=== PATIENT | male | born 1980 | race Asian ===

== ENCOUNTER 2018-06-07 18:00 | Emergency (ER) | payer OTHER ==
[~2018-06-07] VITALS: Ht 167.6 cm; Wt 67.1 kg
[2018-06-07 18:24] VITALS: Ht 167.6 cm; Wt 67.1 kg
[2018-06-07 20:02] VITALS: BP 140/96
== END 2018-06-07 20:02 | disposition home or self-care (01) ==
LOC: ED 18:00
DX: M79.10 Myalgia, unspecified site (principal); R07.89 Other chest pain; Z88.1 Allergy status to other antibiotic agents; Z87.442 Personal history of urinary calculi; V48.5XXA Car driver injured in noncollision transport accident in traffic accident, initial encounter; Y93.I9 Activity, other involving external motion; Y92.411 Interstate highway as the place of occurrence of the external cause; Y99.8 Other external cause status
CPT/HCPCS: Q0162